=== PATIENT | female | born 1990 | race African-American/Black ===

== ENCOUNTER 2019-04-16 18:32 | Emergency (ER) | payer OTHER ==
[~2019-04-16] VITALS: Ht 165.1 cm; Wt 91.2 kg
--- NOTE | 2019-04-16 18:37 | PHYS DOC ---
Adult General Chief Complaint Chief Complaint: FLU SYMPTOM.." ... I been sick for over 2 weeks now fever, chills, achy, coughing, I think at the flu" HPI HPI Patient is a 28 year old female who presents with above hx and complaints fever, chills, malaise, myalgia, arthralgia, pharyngitis, chest congestion, and fatigue. Patient denies any travel or specific ill contacts. Did not get a flu vaccination this season. No recent travel. No history immunosuppression. Does not have a primary care she follows or care.. Children have had colds earlier last month. Review of Systems Review of Systems Constitutional: Complaints of fever or chills [] Eyes: Denies change in visual acuity, redness, or eye pain [] HENT: Complaints of nasal congestion or sore throat [] Respiratory: Complaints of cough and wheezing Cardiovascular: No additional information not addressed in HPI [] GI: Denies abdominal pain, nausea, vomiting, bloody stools or diarrhea [] : Denies dysuria or hematuria [] Musculoskeletal: Complaints of generalized body pain Integument: Denies rash or skin lesions [] Neurologic: Denies headache, focal weakness or sensory changes [] Endocrine: Denies polyuria or polydipsia [] All other systems were reviewed and found to be within normal limits, except as documented in this note. Family History Family History Noncontributory Current Medications Current Medications See nursing for home meds Allergies Allergies No known drug allergies Physical Exam Physical Exam Constitutional: Moderate acute distress, non-toxic appearance. [] HENT: Normocephalic, atraumatic, bilateral external ears normal, oropharynx moist, injected pharynx, no oral exudates, nose swollen turbinates and clear rhinorrhea Eyes: PERRLA, EOMI, conjunctiva normal, no discharge. [] Neck: Normal range of motion, no tenderness, supple, no stridor. [] Old surgery scar right side of neck Cardiovascular: Tachycardia Heart rate regular rhythm, no murmur [] Lungs & Thorax: Bilateral breath sounds with apex with scattered wheezes auscultation [] Abdomen: Bowel sounds normal, soft, no tenderness, no masses, no pulsatile masses. [] Skin: Warm, dry, no erythema, no rash. [] Back: No tenderness, no CVA tenderness. [] Extremities: No tenderness, no cyanosis, no clubbing, ROM intact, no edema. [] Neurologic: Alert and oriented X 3, normal motor function, normal sensory function, no focal deficits noted. [] Psychologic: Affect anxious, judgement normal, mood normal. [] EKG EKG [] Radiology/Procedures Radiology/Procedures [][address] [id number] IMAGING REPORT Signed PATIENT: CARSON FARRIS ACCOUNT: [id number] : 1990 LOCATION: ER AGE: 28 SEX: F EXAM STATUS: DEP ER ORD. PHYSICIAN: TULIO FORD MD REASON: Congestion, cough, fever x 2 weeks PROCEDURE: CHEST PA & LATERAL EXAM: PA and Lateral Views of the Chest DATE: 04/16/2019 7:32 PM INDICATION: Cough, fever, congestion COMPARISON: No Prior FINDINGS/ IMPRESSION: The heart is not enlarged. Mediastinal and hilar contours are normal. Patchy opacities left lung base, best seen on the lateral view likely developing consolidative process such as pneumonia. No pleural effusion or pneumothorax. Electronically signed by: Colin Yang MD (04/16/2019 8:27 PM) [facility] [place] S[place] BY: COLIN YANG MD DATE: 04/16/192026 CC: TULIO FORD MD; PCP,NO ~ Course & Med Decision Making Course & Med Decision Making Pertinent Labs and Imaging studies reviewed. (See chart for details) Patient push fluids. Gargle with Listerine 4 times a day. Take Tylenol and ibuprofen as needed for discomfort. Benadryl 25-50 mg 4 times daily may be helpful for congestion and cough. Patient uses MDI 2 puffs 4 times a day. Take prednisone 50 mg a day for 5 days. Follow-up primary care. Return if any concerns. Take Azithromax 250 a day . Impression: 1. Fever 2. Lt. Lung base atelectasis/ infiltrate- Suspect Pneumonia. 3. Possible UTI- recheck urine on follow up. ( To many epi in sample) [] Dragon Disclaimer Dragon Disclaimer This electronic medical record was generated, in whole or in part, using a voice recognition dictation system. Departure Departure: Disposition: 01 HOME/RESIDENCE PRIOR TO ADM Condition: STABLE Referrals: PCP,NO (PCP) Scripts Azithromycin (AZITHROMYCIN TABLET) 250 Mg Tablet 250 MG PO DAILY for ANTI-BIOTIC for 5 Days, #5 TAB 0 Refills Prov: TULIO FORD MD 04/16/19 Prednisone (PREDNISONE) 50 Mg Tablet 50 MG PO DAILY for cough, reactive airway for 5 Days, #5 TAB Prov: TULIO FORD MD 04/16/19 TULIO FORD MD Apr 16, 2019 18:37
[2019-04-16] MEDS ORDERED: ALBUTEROL SULFATE 8GM INHALER. INH ONE (19:00)
[2019-04-16] MEDS ORDERED: predniSONE 10 MG TABLET PO ONE (19:00)
[2019-04-16] MEDS ORDERED: ACETAMINOPHEN 500 MG TABLET PO ONE (19:00)
[2019-04-16] MEDS ORDERED: PRED50TA PO (19:35)
[2019-04-16 19:37] LABS: INFLUENZA A PATIENT NEGATIVE (NEGATIVE); INFLUENZA B PATIENT NEGATIVE (NEGATIVE)
[2019-04-16] MEDS ORDERED: AZIT250T6 PO (19:41)
[2019-04-16 19:45] LABS: BARBITURATES NEG (NEG); BENZODIAZEPINES NEG (NEG); CANNABINOIDS NEG (NEG); COCAINE NEG (NEG); METHADONE NEG (NEG); OPIATES NEG (NEG); PHENCYCLIDINE NEG (NEG)
[2019-04-16] MEDS ORDERED: AZITHROMYCIN 250 MG TABLET. PO ONE (19:45)
[2019-04-16 19:52] LABS: BACTERIA,URINE MANY /HPF (0-FEW); BILIRUBIN,URINE NEG (NEG); CLARITY,URINE CLOUDY; COLOR,URINE AMBER; GLUCOSE,URINE NEG (NEG); NITRITE,URINE NEG (NEG); RBC,URINE 20-40 /HPF (0-2)
[2019-04-16 19:53] LABS: AMORPHOUS SEDIMENT,UR PRESENT /HPF; SQUAMOUS EPITHELIAL CELL,UR MANY /LPF
[2019-04-16 19:54] LABS: AMPHETAMINE/METHAMPHETAMINE NEG (NEG)
[2019-04-16 20:05] VITALS: BP 131/81
--- NOTE | 2019-04-16 20:30 | RAD ---
EXAM: PA and Lateral Views of the Chest DATE: 04/16/2019 7:32 PM INDICATION: Cough, fever, congestion COMPARISON: No Prior FINDINGS/ IMPRESSION: The heart is not enlarged. Mediastinal and hilar contours are normal. Patchy opacities left lung base, best seen on the lateral view likely developing consolidative process such as pneumonia. No pleural effusion or pneumothorax. Electronically signed by: Colin Yang MD (04/16/2019 8:27 PM) [facility] – [place]
== END 2019-04-16 20:08 | disposition home or self-care (01) ==
LOC: ER 18:32
DX: R50.9 Fever, unspecified (principal); J98.11 Atelectasis; R06.2 Wheezing; R05 Cough; R09.89 Other specified symptoms and signs involving the circulatory and respiratory systems; M79.10 Myalgia, unspecified site
CPT/HCPCS: 36415; 71046; 80307; 81001; 81025; 87070; 87086; 87804; 87880; 94640; 99285; J0456; J7512; J7613; 94664

== ENCOUNTER 2019-06-14 01:55 | Emergency (ER) | payer OTHER ==
[~2019-06-14] VITALS: Ht 165.1 cm; Wt 96.1 kg
[~2019-06-14 01:55] MED LIST: AZIT250T6 PO; PRED50TA PO
[2019-06-14 02:02] VITALS: BP 157/100
--- NOTE | 2019-06-14 02:27 | PHYS DOC ---
Past History Past Medical History: No Pertinent History Past Surgical History: Other Additional Past Surgical Histo: NECK SURGERY Alcohol Use: None Drug Use: None Adult General Chief Complaint Chief Complaint: COUGH.. " .. I ve been coughting for last two days... I brought my sonein to [facility].. so I decided to get checked too... " HPI HPI Patient is a 28 year old female who presents with above hx and complaints of a nonproductive cough, malaise, arthralgia, fatigue, nasal congestion ,sore throat and wheezing. Patient did get flu vaccination this season. No recent travel outside the state. No specific ill contacts other than her son just developed a sore throat. Patient has remote history of prolonged hospitalization at [facility] when she was a child . No history immunosuppression.. Follows with Dr. Ryan. Review of Systems Review of Systems Constitutional: Denies fever or chills [] Eyes: Denies change in visual acuity, redness, or eye pain [] HENT: Denies nasal congestion or sore throat [] Respiratory: History of nonproductive cough and wheezing Cardiovascular: No additional information not addressed in HPI [] GI: Denies abdominal pain, nausea, vomiting, bloody stools or diarrhea [] : Denies dysuria or hematuria [] Musculoskeletal: Denies back pain or joint pain [] Integument: Denies rash or skin lesions [] Neurologic: Denies headache, focal weakness or sensory changes [] Endocrine: Denies polyuria or polydipsia [] All other systems were reviewed and found to be within normal limits, except as documented in this note. Family History Family History Son has streptococcal pharyngitis Current Medications Current Medications See nursing for home meds Allergies Allergies Allergies Coded Allergies Type Severity Reaction Last Updated Verified No Known Drug Allergies 04/16/19 No Physical Exam Physical Exam Constitutional: no acute distress, non-toxic appearance. [] HENT: Normocephalic, atraumatic, bilateral external ears normal, oropharynx moist, no oral exudates, mild injection of pharynx nose swollen turbinates and clear rhinorrhea Eyes: PERRLA, EOMI, conjunctiva normal, no discharge. [] Neck: Normal range of motion, no tenderness, supple, no stridor. Large surgical scar on neck and supra clavicle area on right Cardiovascular:Heart rate regular rhythm, no murmur [] Lungs & Thorax: Bilateral breath sounds equal apex with scattered wheezes on auscultation [] Abdomen: Bowel sounds normal, soft, no tenderness, no masses, no pulsatile masses. [] Skin: Warm, dry, no erythema, no rash. [] Back: No tenderness, no CVA tenderness. [] Extremities: No tenderness, no cyanosis, no clubbing, ROM intact, no edema. [] Neurologic: Alert and oriented X 3, normal motor function, normal sensory function, no focal deficits noted. [] Psychologic: Affect anxious, judgement normal, mood normal. [] EKG EKG [] Radiology/Procedures Radiology/Procedures [] Course & Med Decision Making Course & Med Decision Making Pertinent Labs and Imaging studies reviewed. (See chart for details) Take his Zithromax 250 mg daily for 5 days. Take prednisone 50 mg a 5 days. Use MDI 2 puffs 4 times a day. Tylenol and ibuprofen for discomfort. Follow-up primary care. Return if any concerns. Impression: 1. Upper respiratory infection 2. Bronchitis [] Dragon Disclaimer Dragon Disclaimer This electronic medical record was generated, in whole or in part, using a voice recognition dictation system. Departure Departure: Disposition: HOME/RESIDENCE PRIOR TO ADM Condition: STABLE Referrals: TRIP RYAN MD (PCP) Scripts Albuterol Sulfate (VENTOLIN HFA INHALER) 18 Gm Hfa.aer.ad 2 PUFF IH PRN Q4HRS PRN for FOR ASTHMA for 30 Days, INHALER 0 Refills Prov: TULIO FORD MD 06/14/19 Azithromycin (AZITHROMYCIN TABLET) 250 Mg Tablet 250 MG PO DAILY for ANTI-BIOTIC for 5 Days, #5 TAB 0 Refills Prov: TULIO FORD MD 06/14/19 Prednisone (PREDNISONE) 50 Mg Tablet 50 MG PO DAILY for reactive airway for 5 Days, #5 TAB Prov: TULIO FORD MD 06/14/19 Alida Disclaimer This chart was dictated in whole or in part using Voice Recognition software in a busy, high-work load, and often noisy Emergency Department environment. It may contain unintended and wholly unrecognized errors or omissions. TULIO FORD MD Jun 14, 2019 02:27
[2019-06-14] MEDS ORDERED: predniSONE 10 MG TABLET PO ONE (02:30)
[2019-06-14] MEDS ORDERED: IPRATRPIUM/ALBUTEROL 0.5/2.5MG 3 ML NEBU. NEB ONE (02:30)
[2019-06-14 03:24] LABS: BARBITURATES NEG (NEG); BENZODIAZEPINES NEG (NEG); CANNABINOIDS NEG (NEG); COCAINE NEG (NEG); METHADONE NEG (NEG); OPIATES NEG (NEG); PHENCYCLIDINE NEG (NEG)
[2019-06-14 03:27] LABS: AMPHETAMINE/METHAMPHETAMINE NEG (NEG)
[2019-06-14 03:29] LABS: INFLUENZA A PATIENT NEGATIVE (NEGATIVE); INFLUENZA B PATIENT NEGATIVE (NEGATIVE)
[2019-06-14 03:37] LABS: BILIRUBIN,URINE NEG (NEG); CLARITY,URINE HAZY; COLOR,URINE YELLOW; GLUCOSE,URINE NEG (NEG); NITRITE,URINE NEG (NEG); RBC,URINE >40 /HPF (0-2); UROBILINOGEN,URINE 0.2 mg/dL (0.2 mg/dL)
[2019-06-14 03:38] LABS: BACTERIA,URINE 0 /HPF (0-FEW); SQUAMOUS EPITHELIAL CELL,UR MOD /LPF
[2019-06-14] MEDS ORDERED: ALBU2.5V8 IH (04:07)
[2019-06-14] MEDS ORDERED: AZIT250T6 PO (04:07)
[2019-06-14] MEDS ORDERED: PRED50TA PO (04:07)
[2019-06-14] MEDS ORDERED: AZITHROMYCIN 250 MG TABLET. PO ONE (04:15)
== END 2019-06-14 04:32 | disposition home or self-care (01) ==
LOC: ER 01:55
DX: J06.9 Acute upper respiratory infection, unspecified (principal); J40 Bronchitis, not specified as acute or chronic
CPT/HCPCS: 36415; 80307; 81001; 81025; 87070; 87086; 87804; 87880; 94640; 99283; J0456; J7512

== ENCOUNTER → 2019-06-21 | Outpatient (CLI) | payer OTHER ==
[2019-06-14 02:02] VITALS: BP 157/100
[~2019-06-21] MED LIST changes: +ALBU2.5V8 IH
--- NOTE | 2019-06-21 14:59 | RAD ---
5 views lumbar spine 06/21/2019 INDICATION: Low back pain COMPARISON STUDY: None available Findings:: No evidence of acute fracture or alignment abnormality is identified. The body heights and disc spaces are grossly preserved. No evidence of spondylolysis or spondylolisthesis is seen. No acute soft tissue changes are identified. IMPRESSION: No radiographic evidence of acute osseous abnormality Electronically signed by: Lars Lunsford MD (06/21/2019 2:56 PM) [id number]
== END ==
LOC: DXRAD 13:47
PROVIDERS: ATTEND Family Medicine
DX: M54.5 Low back pain (principal)
CPT/HCPCS: 72110

== ENCOUNTER 2019-10-07 19:20 | Emergency (ER) | payer OTHER ==
[~2019-10-07] VITALS: Ht 165.1 cm; Wt 90.8 kg
[2019-10-07 19:20] VITALS: BP 130/88
--- NOTE | 2019-10-07 19:35 | PHYS DOC ---
Past History Past Medical History: No Pertinent History Past Surgical History: Other Additional Past Surgical Histo: NECK SURGERY Smoking: Non-smoker Alcohol Use: None Drug Use: None General Adult EDM: Chief Complaint: congestion HPI: HPI: Patient is a 28 year old female who presents for evaluation of congestion, sneezing and sinus pressure. Onset of symptoms of the past several days. Furthermore she is had some right chest wall pressure as well. She has been taking [id number] allergy medication without improvement of symptoms. There is no reported fevers and chills. Patient has a mild nonproductive cough. Patient is not exposed any known COVID patients. Drainage is clear Review of Systems: Review of Systems: Constitutional: Denies fever or chills Eyes: Denies change in visual acuity HENT: has nasal congestion and sore throat Respiratory: has cough and shortness of breath Cardiovascular: Denies chest pain or edema GI: Denies abdominal pain, nausea, vomiting, bloody stools or diarrhea : Denies dysuria Musculoskeletal: Denies back pain or joint pain Integument: Denies rash Neurologic: Denies headache, focal weakness or sensory changes Endocrine: Denies polyuria or polydipsia Lymphatic: Denies swollen glands Psychiatric: Denies depression or anxiety Heart Score: Risk Factors: Risk Factors: DM, Current or recent (<one month) smoker, HTN, HLP, family history of CAD, obesity. Risk Scores: Score 0 - 3: 2.5% MACE over next 6 weeks - Discharge Home Score 4 - 6: 20.3% MACE over next 6 weeks - Admit for Clinical Observation Score 7 - 10: 72.7% MACE over next 6 weeks - Early Invasive Strategies Allergies: Allergies: Allergies Coded Allergies Type Severity Reaction Last Updated Verified No Known Drug Allergies 04/16/19 No Physical Exam: PE: Constitutional: Well developed, well nourished, mild acute distress, non-toxic appearance. [] HENT: Normocephalic, atraumatic, bilateral external ears normal, oropharynx moist, no oral exudates, nose normal. [] Eyes: PERRL, EOMI, conjunctiva normal, no discharge. [] Neck: Normal range of motion, no tenderness, supple, no stridor. [] Cardiovascular:Heart rate regular rhythm, no murmur [] Lungs & Thorax: Bilateral breath sounds present, some mild rhonchi present [] Abdomen: Bowel sounds normal, soft, no tenderness, no masses. [] Skin: Warm, dry, no erythema, no rash. [] Back: No tenderness. [] Extremities: No tenderness, no cyanosis, no clubbing, ROM intact, no edema. [] Neurologic: Alert and oriented X 3, normal motor function, normal sensory function, no focal deficits noted. [] Psychologic: Affect normal, judgement normal, mood normal. [] EKG: EKG: [] Radiology/Procedures: Radiology/Procedures: [address] [id number] IMAGING REPORT Signed PATIENT: CARSON FARRIS ACCOUNT: [id number] : 1990 LOCATION: ER AGE: 28 SEX: F EXAM STATUS: REG ER ORD. PHYSICIAN: ASHA SCHULTZ DO REASON: cough, congestion PROCEDURE: CHEST PA & LATERAL Exam performed: 2 views of the chest. Indication: Reason: cough, congestion / Spl. Instructions: / History: Date of Service: 10/07/2019 7:31 PM . Comparison : Two-view chest from 04/16/2019 Findings: PA and lateral radiographs of the chest reveal a normal cardiomediastinal contour. The lungs are clear. No pleural fluid is seen. The visualized osseous structures are unremarkable. Impression: No acute cardiopulmonary process seen. Electronically signed by: Edith Pacheco MD (10/07/2019 7:46 PM) [facility] DICTATED AND SIGNED BY: EDITH PACHECO MD DATE: 10/07/191945 CC: TRIP RYAN MD; ASHA SCHULTZ DO ~ [] Course & Med Decision Making: Course & Med Decision Making Pertinent Labs and Imaging studies reviewed. (See chart for details) [] Dragon Disclaimer: Dragon Disclaimer: This electronic medical record was generated, in whole or in part, using a voice recognition dictation system. 195 stable, will treat symptomatically. Patient does not have pneumonia. Prescription for Medrol Dosepak and Zyrtec given. Patient has stable vital signs. No direct suspicion of COVID at this time Departure Departure: Impression: Primary Impression: Acute bronchitis Qualified Codes: J20.9 - Acute bronchitis, unspecified Disposition: HOME/RESIDENCE PRIOR TO ADM Condition: STABLE Referrals: TRIP RYAN MD (PCP) Patient Instructions: Acute Bronchitis, Iblr-oh-Oazz Additional Instructions: Drink plenty fluids, rest, take medication as directed, use [id number] cough suppressant as directed when needed Scripts Benzonatate (TESSALON PERLE) 100 Mg Capsule 1 CAP PO TID for cough, #21 CAP Prov: ASHA SCHULTZ DO 10/07/19 Cetirizine Hcl (ZYRTEC) 10 Mg Tablet 1 TAB PO DAILY for congestion, #30 TAB 2 Refills Prov: ASHA SCHULTZ DO 10/07/19 Methylprednisolone (MEDROL) 4 Mg Tab.ds.pk 4 MG PO 1X for reactive airway, #1 PKG Prov: ASHA SCHULTZ DO 10/07/19 Justification of Admission: Justification of Admission: Justification of Admission Dx: N/A ASHA SCHULTZ DO Oct 07, 2019 19:35
--- NOTE | 2019-10-07 19:49 | RAD ---
Exam performed: 2 views of the chest. Indication: Reason: cough, congestion / Spl. Instructions: / History: Date of Service: 10/07/2019 7:31 PM . Comparison : Two-view chest from 04/16/2019 Findings: PA and lateral radiographs of the chest reveal a normal cardiomediastinal contour. The lungs are clear. No pleural fluid is seen. The visualized osseous structures are unremarkable. Impression: No acute cardiopulmonary process seen. Electronically signed by: Edith Pacheco MD (10/07/2019 7:46 PM) [facility]
[2019-10-07] MEDS ORDERED: CETI10TA24 PO (19:55)
[2019-10-07] MEDS ORDERED: METH4TAB2 PO (19:55)
[2019-10-07] MEDS ORDERED: BENZ100C PO (19:55)
== END 2019-10-07 20:00 | disposition home or self-care (01) ==
LOC: ER 19:20
DX: J20.9 Acute bronchitis, unspecified (principal); R07.89 Other chest pain; R05 Cough; R09.81 Nasal congestion; Z98.890 Other specified postprocedural states
CPT/HCPCS: 71046; 99283

== ENCOUNTER 2019-10-24 16:30 | Emergency (ER) | payer OTHER ==
[~2019-10-24] VITALS: Ht 165.1 cm; Wt 90.8 kg
[~2019-10-24 16:30] MED LIST changes: +BENZ100C PO; +CETI10TA24 PO; +METH4TAB2 PO
[2019-10-24 16:37] VITALS: BP 136/87
[2019-10-24] MEDS ORDERED: AMOX1TAB61 PO (17:12)
[2019-10-24] MEDS ORDERED: HYDR-3165 PO (17:12)
--- NOTE | 2019-10-24 17:12 | PHYS DOC ---
Past History Past Medical History: No Pertinent History Past Surgical History: Other Additional Past Surgical Histo: NECK SURGERY, hernia repair Smoking: Non-smoker Alcohol Use: None Drug Use: None General Adult EDM: Chief Complaint: DENTAL PROBLEM HPI: HPI: 28-year-old female presents with left upper side dental pain. This is been brewing for about a week. It is gotten worse last 2 days. She has try to get into her dentist, but there is no appointment for a month. The pain is bad enough today that she decided come the emergency room. She denies fever or chills. She has no other complaints at this time. Review of Systems: Review of Systems: Constitutional: Denies fever or chills Eyes: Denies change in visual acuity HENT: Dental pain Respiratory: Denies cough or shortness of breath Cardiovascular: Denies chest pain or edema GI: Denies abdominal pain, nausea, vomiting, bloody stools or diarrhea : Denies dysuria Musculoskeletal: Denies back pain or joint pain Integument: Denies rash Neurologic: Denies headache, focal weakness or sensory changes Endocrine: Denies polyuria or polydipsia Lymphatic: Denies swollen glands Psychiatric: Denies depression or anxiety Heart Score: Risk Factors: Risk Factors: DM, Current or recent (<one month) smoker, HTN, HLP, family history of CAD, obesity. Risk Scores: Score 0 - 3: 2.5% MACE over next 6 weeks - Discharge Home Score 4 - 6: 20.3% MACE over next 6 weeks - Admit for Clinical Observation Score 7 - 10: 72.7% MACE over next 6 weeks - Early Invasive Strategies Allergies: Allergies: Allergies Coded Allergies Type Severity Reaction Last Updated Verified No Known Drug Allergies 04/16/19 No Physical Exam: PE: Constitutional: Well developed, well nourished, no acute distress, non-toxic appearance. [] HENT: Normocephalic, atraumatic, bilateral external ears normal, oropharynx moist, no oral exudates, nose normal. Dental caries in the left upper quadrant with some gum swelling. [] Eyes: PERRLA, EOMI, conjunctiva normal, no discharge. [] Neck: Normal range of motion, no tenderness, supple, no stridor. [] Cardiovascular: Heart rate regular rhythm, no murmur [] Lungs & Thorax: Bilateral breath sounds clear to auscultation [] Abdomen: Bowel sounds normal, soft, no tenderness, no masses, no pulsatile masses. [] Skin: Warm, dry, no erythema, no rash. [] Back: No tenderness, no CVA tenderness. [] Extremities: No tenderness, no cyanosis, no clubbing, ROM intact, no edema. [] Neurologic: Alert and oriented X 3, normal motor function, normal sensory function, no focal deficits noted. [] Psychologic: Affect normal, judgement normal, mood normal. [] Current Patient Data: Vital Signs: Vital Signs Date Time Temp Pulse Resp B/P (MAP) Pulse Ox O2 Delivery O2 Flow Rate FiO2 10/24/19 16:37 98.2 77 14 136/87 (103) 97 Room Air EKG: EKG: [] Radiology/Procedures: Radiology/Procedures: [] Course & Med Decision Making: Course & Med Decision Making Pertinent Labs and Imaging studies reviewed. (See chart for details) Patient appears to have an infected dental carry. I will treat her with Augmentin for 7 days. I will also give her 10 [place] 5/325 for breakthrough pain. She will follow-up with her dentist and call additional dentist if they cannot get her in. She is stable for discharge at this time. [] Dragon Disclaimer: Dragon Disclaimer: This electronic medical record was generated, in whole or in part, using a voice recognition dictation system. Departure Departure: Impression: Primary Impression: Infected dental caries Disposition: HOME/RESIDENCE PRIOR TO ADM Condition: STABLE Referrals: TRIP RYAN MD (PCP) Patient Instructions: Dental Caries, Dental Pain, Hxik-es-Tcln Scripts Hydrocodone Bit/Acetaminophen (NORCO 5-325 TABLET) 1 Each Tablet 1 TAB PO PRN Q6HRS PRN for PAIN, #10 TAB 0 Refills Prov: SHANTI RUVALCABA DO 10/24/19 Amoxicillin/Potassium Clav (AUGMENTIN 875-125 TABLET) 1 Each Tablet 1 TAB PO BID for dental infection for 7 Days, #14 TAB 0 Refills Prov: SHANTI RUVALCABA DO 10/24/19 Justification of Admission: Justification of Admission: Justification of Admission Dx: N/A SHANTI RUVALCABA DO Oct 24, 2019 17:12
== END 2019-10-24 17:17 | disposition home or self-care (01) ==
LOC: ER 16:30
DX: K02.9 Dental caries, unspecified (principal); K04.7 Periapical abscess without sinus
CPT/HCPCS: 99283

== ENCOUNTER 2020-01-01 17:09 | Emergency (ER) | payer OTHER ==
[~2020-01-01] VITALS: Ht 165.1 cm; Wt 90.8 kg
[~2020-01-01 17:09] MED LIST changes: +AMOX1TAB61 PO; -CETI10TA24 PO; +CETI10TA74 PO; +HYDR-3165 PO
--- NOTE | 2020-01-01 18:10 | PHYS DOC ---
Past History Past Medical History: No Pertinent History Past Surgical History: Other Additional Past Surgical Histo: NECK SURGERY, hernia repair Smoking: Non-smoker Alcohol Use: None Drug Use: None General Adult EDM: Chief Complaint: PAIN ON URINATION HPI: HPI: Lou Alfaro is a 29-year-old female who presents with approximately 2 days of dysuria. She states that 2 days ago she began to have a slight pain when u rinating, and that this morning the pain increased when she urinated. She affirms having a pressure lower abdominal pain that is constant and does not radiate into her groin. She affirms minimal paraspinal back pain bilaterally. Patient states that her partner recently informed her that she tested positive for an unknown sexually transmitted disease. She is concerned for possibility of an STD, and has been experiencing some vaginal discharge that is clear-white. Her last menstrual period was approximately 1 week ago and was normal for her. Review of Systems: Review of Systems: Constitutional: Denies fever or chills Eyes: Denies redness or eye pain HENT: Denies nasal congestion or sore throat Respiratory: Denies cough or shortness of breath Cardiovascular: Denies chest pain or palpitations GI: Denies nausea and vomiting; affirms abdominal pain : Denies hematuria; affirms hematuria Musculoskeletal: Denies joint pain; affirms back pain Integument: Denies rash or skin lesions Neurologic: Denies headache, focal weakness or sensory changes Complete systems were reviewed and found to be within normal limits, except as documented in this note. Allergies: Allergies: Allergies Coded Allergies Type Severity Reaction Last Updated Verified No Known Drug Allergies 04/16/19 No Physical Exam: PE: Constitutional: Well developed, well nourished, no acute distress, non-toxic appearance HENT: Normocephalic, atraumatic Eyes: PERRL, EOMI, conjunctiva normal, no discharge Neck: Normal range of motion, no tenderness, supple Lungs & Thorax: No respiratory distress, equal chest rise and fall Abdomen: Soft, minimal suprapubic tenderness Skin: Warm, dry, no erythema, no rash Back: No tenderness, no CVA tenderness Extremities: No tenderness, ROM intact, no edema Neurologic: Alert and oriented X 3, normal motor function, normal sensory function, no focal deficits noted Psychologic: Affect normal, judgment normal Pelvic: Notable at his moderate amount of white discharge, cervix visualized and appears normal, no cervical motion tenderness, minimal bilateral adnexal tenderness Course & Med Decision Making: Course & Med Decision Making Patient presented with dysuria as presented above. Patient's presentation increases suspicion for possible urinary tract infection. Urinalysis revealed . Pelvic exam was utilized due to patient's exposure to sexual transmitted disease and revealed white discharge present in the vaginal vault as well as bilateral adnexal tenderness on bimanual exam. Cultures will be sent and patient will be empirically treated with azithromycin and ceftriaxone. Dragon Disclaimer: Dragon Disclaimer: This electronic medical record was generated, in whole or in part, using a voice recognition dictation system. Departure Departure: Impression: Primary Impression: Encounter for assessment of STD exposure Additional Impression: Dysuria Disposition: 01 HOME/RESIDENCE PRIOR TO ADM Condition: STABLE Referrals: TRIP RYAN MD (PCP) Patient Instructions: Dysuria, Sexually Transmitted Disease, Khsu-oo-Gxpn VIDYA HENNING DO Jan 01, 2020 18:10
[2020-01-01] MEDS ORDERED: cefTRIAXone IM 250 MG VIAL IM ONE (18:15)
[2020-01-01] MEDS ORDERED: AZITHROMYCIN 250 MG TABLET. PO ONE (18:15)
[2020-01-01 18:24] VITALS: BP 163/87
[2020-01-01 18:30] LABS: BILIRUBIN,URINE NEG (NEG); CLARITY,URINE HAZY; COLOR,URINE YELLOW; GLUCOSE,URINE NEG (NEG)
[2020-01-01 18:31] LABS: BACTERIA,URINE FEW /HPF (0-FEW); NITRITE,URINE NEG (NEG); SQUAMOUS EPITHELIAL CELL,UR FEW /LPF; WBC,URINE OCC /HPF (0-4)
[2020-01-04 01:07] LABS: CHLAMYDIA PROBE Negative (Negative)
== END 2020-01-01 19:05 | disposition home or self-care (01) ==
LOC: ER 17:09
DX: Z20.2 Contact with and (suspected) exposure to infections with a predominantly sexual mode of transmission (principal); R30.0 Dysuria; R31.9 Hematuria, unspecified
CPT/HCPCS: 36415; 81001; 81025; 87491; 87591; 96372; 99284; J0456; J0696; Q0111

== ENCOUNTER 2020-01-10 13:39 | Emergency (ER) | payer OTHER ==
[~2020-01-10] VITALS: Ht 165.1 cm; Wt 83.5 kg
[2020-01-10 14:39] VITALS: BP 163/87
--- NOTE | 2020-01-10 14:54 | PHYS DOC ---
Past History Past Medical History: No Pertinent History Past Surgical History: Other Additional Past Surgical Histo: NECK SURGERY, hernia repair Smoking: Non-smoker Alcohol Use: None Drug Use: None General Adult EDM: Chief Complaint: MULTIPLE COMPLAINTS HPI: HPI: Patient is a 29 year old female who presents with complaints of COVID-19 exposure from a family member that tested positive last Monday. Patient states she does not have any symptoms related to the COVID-19 virus. Patient does however state that she has left upper rear molar dental pain this been going on for several months and causes her off-and-on headaches. Patient states she does not have a headache right now. Patient rates her tooth pain a 8/10 on a 1-10 pain scale. Patient denies fever chills, headaches, sore throat, fatigue, muscle or body aches, loss of taste, loss of smell, diarrhea, nausea, vomiting, congestion, cough, or runny nose. Patient's last normal period was on 21 December 2019, patient states that she is not because she has not been having sex lately. Review of Systems: Review of Systems: Constitutional: Denies fever or chills Eyes: Denies change in visual acuity HENT: Denies nasal congestion or sore throat, complains of dental pain left upper rear molars. Respiratory: Denies cough or shortness of breath Cardiovascular: Denies chest pain or edema GI: Denies abdominal pain, nausea, vomiting, bloody stools or diarrhea : Denies dysuria Musculoskeletal: Denies back pain or joint pain Integument: Denies rash Neurologic: Denies headache, focal weakness or sensory changes Lymphatic: Denies swollen glands Psychiatric: Denies depression or anxiety Heart Score: Risk Factors: Risk Factors: DM, Current or recent (<one month) smoker, HTN, HLP, family history of CAD, obesity. Risk Scores: Score 0 - 3: 2.5% MACE over next 6 weeks - Discharge Home Score 4 - 6: 20.3% MACE over next 6 weeks - Admit for Clinical Observation Score 7 - 10: 72.7% MACE over next 6 weeks - Early Invasive Strategies Family History: Family History: Recent family history of positive COVID-19 virus. Current Medications: Current Meds: Patient states she takes an albuterol inhaler as needed for asthma problems. Allergies: Allergies: Allergies Coded Allergies Type Severity Reaction Last Updated Verified No Known Drug Allergies 04/16/19 No Physical Exam: PE: Constitutional: Well developed, well nourished, no acute distress, non-toxic appearance. HENT: Normocephalic, atraumatic, bilateral external ears normal, oropharynx moist, no oral exudates, nose normal. Patient has poor dentition with dental caries, left upper rear molar tooth intact with evidence of pulpitis. Eyes: PERRLA, EOMI, conjunctiva normal, no discharge. Neck: Normal range of motion, no tenderness, supple, no stridor. Cardiovascular:Heart rate regular rhythm, no murmur Lungs & Thorax: Bilateral breath sounds clear to auscultation Abdomen: Bowel sounds normal, soft, no tenderness, no masses, no pulsatile masses. Skin: Warm, dry, no erythema, no rash. Back: No tenderness, no CVA tenderness. Extremities: No tenderness, no cyanosis, no clubbing, ROM intact, no edema. Neurologic: Alert and oriented X 3, normal motor function, normal sensory function, no focal deficits noted. Psychologic: Affect normal, judgement normal, mood normal. Current Patient Data: Vital Signs: Vital Signs Date Time Temp Pulse Resp B/P (MAP) Pulse Ox O2 Delivery O2 Flow Rate FiO2 01/10/20 14:39 98.7 84 18 163/87 (112) 100 EKG: EKG: [] Radiology/Procedures: Radiology/Procedures: [] Course & Med Decision Making: Course & Med Decision Making Pertinent Labs and Imaging studies reviewed. (See chart for details) 29-year-old female reports to the emergency department with complaints that she was exposed to the COVID-19 virus from a family member who tested positive last Monday. Patient denies any symptoms of the COVID-19 virus. Patient does however complain of a sore upper left molar this been going on for several months. Patient states she has not been able to see a dentist lately. Related to patient exposure to the COVID-19 virus, a Covid test was performed in the ER today. Patient will be sent home on Pen-Vee K and Motrin prescriptions for dental caries, patient is to follow-up with a dentist soon. Patient gave verbal understanding of home care instructions follow-up care instructions return to emergency department concerns. Patient had no further questions or concerns. Patient discharged home without incident. Alida Disclaimer: Alida Disclaimer: This electronic medical record was generated, in whole or in part, using a voice recognition dictation system. Departure Departure: Impression: Primary Impression: Pulpitis Additional Impressions: Dental caries Exposure to COVID-19 virus COVID-19 virus test result unknown Educated about COVID-19 virus infection Disposition: 01 DC HOME SELF CARE/HOMELESS Condition: GOOD Referrals: TRIP RYAN MD (PCP) Patient Instructions: Dental Caries Additional Instructions: You have been tested for or diagnosed with COVID-19. It is an infection caused by a new type of coronavirus. COVID-19 will cause cold-like or mild flu symptoms in most. It can cause more severe symptoms like problems breathing in some. There is no treatment for COVID-19. The body will clear the infection over time. Self-care will help to ease discomfort. Steps to Take: Self-Care Rest as needed. Healthy habits may help you feel better. Steps include: Choose healthy foods including fruits and vegetables. Drink water throughout the day. Get plenty of sleep each night. If you smoke, try to quit. It may ease breathing. Avoid alcohol. Keep Others Healthy The virus can spread to others. Droplets are released every time you sneeze or cough. The droplets can get into the mouth, nose, or eyes of people near you and lead to infection. To lower the chances of spreading COVID-19 to others: Stay at home until your doctor has said it is safe to leave. If you tested positive this will mean staying isolated until both of the following are true: At least 7 days have passed since the start of illness. You are free of fever for at least 72 hours without the use of medicine. During this time: - Avoid public areas, events, or transportation. Do not return to work or school until your doctor has said it is safe to do so. - Call ahead if you need to go to a medical center. Let them know you may have COVID-19. It will help them guide you where to go. They may also ask you to wear a facemask when you come to the office. - If you call for emergency medical services, let them know you may have COVID- 19. While at home: - Try to avoid close contact with others. Stay about 6 feet away. - If possible, spend most of your time in a separate room from others. - Use a face mask if you will be in close contact with others such as sharing a room or vehicle. - Have someone wipe down common surfaces in the home. Use household urban planning professor every day on areas like doorknobs, counters, or sinks. - Cough or sneeze into a tissue. Throw the tissue away right after use. If a tissue is not available, cough or sneeze into your elbow. - Wash your hands often. Wash them after sneezing or coughing. Use soap and water and wash for at least 20 seconds. Alcohol based hand ribbon cleaner can be used if soap and water is not available. - Do not prepare food for others. Avoid sharing personal items like forks, spoons, or toothbrushes. - Avoid close contact with pets while you are sick. There is no evidence of the virus passing to pets. This is a safety step until more is known about this virus. Isolation can be frustrating. Social interaction can help. Keep in touch with friends and family through phone and tech options. You can still interact with others in your home, just keep a safe distance of about 6 feet. Follow-up: Your doctors office will check in with you to see if there are any changes in your health. You may be asked to keep track of symptoms to share with them. They will also let you know when you are clear to be in public again. Problems to Look Out For: Contact your doctor if your recovery is not going as you expect. Get emergency care if you have problems such as: - Trouble breathing - Nonstop chest pain or pressure - Changes in awareness, confusion, or problems waking - Lips or face have bluish color - Worsening of symptoms If you think you have an emergency, call for emergency medical services right away. As taken from [facility] Take prescriptions as directed, follow-up with a dentist soon, you have been given a list of dental referrals, follow-up with your primary care doctor for further problems, return to the emergency department for further concerns. Scripts Penicillin V Potassium (PENICILLIN V POTASSIUM) 500 Mg Tablet 1 TAB PO QID for DENTAL INFECTION for 7 Days, #28 TAB Prov: VIDYA MAYS APRN 01/10/20 Ibuprofen (IBUPROFEN) 600 Mg Tablet 600 MG PO TID for DENTAL PAIN, #20 TAB 0 Refills Prov: VIDYA MASY APRN 01/10/20 VIDYA MAYS APRN Jan 10, 2020 14:54
[2020-01-10] MEDS ORDERED: PENI500T PO (15:47)
[2020-01-10] MEDS ORDERED: IBUP600T16 PO (15:47)
--- NOTE | 2020-01-13 09:18 | NUR ---
IP: notified patient of COVID result.
== END 2020-01-10 16:13 | disposition home or self-care (01) ==
LOC: ER 14:12
DX: K04.01 Reversible pulpitis (principal); K02.9 Dental caries, unspecified; Z20.828 Contact with and (suspected) exposure to other viral communicable diseases
CPT/HCPCS: 99283; C9803; U0003

== ENCOUNTER 2020-02-09 10:22 | Emergency (ER) | payer OTHER ==
[~2020-02-09] VITALS: Ht 165.1 cm; Wt 83.5 kg
[2020-02-09 10:22] VITALS: BP 144/89
[~2020-02-09 10:22] MED LIST changes: +IBUP600T16 PO; +PENI500T PO
[2020-02-09] MEDS ORDERED: IPRATRPIUM/ALBUTEROL 0.5/2.5MG 3 ML NEBU. NEB ONE (10:45)
--- NOTE | 2020-02-09 10:53 | PHYS DOC ---
Past History Past Medical History: No Pertinent History Past Surgical History: Other Additional Past Surgical Histo: NECK SURGERY, hernia repair Smoking: Non-smoker Alcohol Use: None Drug Use: None General Adult EDM: Chief Complaint: MULTIPLE COMPLAINTS HPI: HPI: Patient is a 29-year-old female coming in for left-sided chest pain starting about 6 and half hours prior to arrival. Patient woke up with the pain. Says for the past week has been having bilateral upper back pain which she attributed to lifting at her job. Had not been having chest pain prior. Has had a slight cough and use her inhalers morning with a little bit of improvement. No history, history of blood clot and cardiac disease in grandmother. States she had a subjective fever yesterday morning when she woke up, none today. Review of Systems: Review of Systems: Constitutional: Denies fever or chills Eyes: Denies change in visual acuity HENT: Denies nasal congestion or sore throat Respiratory: Denies cough or shortness of breath Cardiovascular: Left-sided chest pain, no lower extremity edema GI: Denies abdominal pain, nausea, vomiting, bloody stools or diarrhea : Denies dysuria Musculoskeletal: Denies back pain or joint pain Integument: Denies rash Neurologic: Denies headache, focal weakness or sensory changes Endocrine: Denies polyuria or polydipsia Lymphatic: Denies swollen glands Psychiatric: Denies depression or anxiety Current Medications: Current Meds: Current Medications Medications (Trade) Dose Ordered Sig/Jayro Start Time Stop Time Status Last Admin Dose Admin Albuterol/ Ipratropium (Duoneb) 3 ml 1X ONCE 02/09/20 10:45 02/09/20 10:46 UNV Allergies: Allergies: Allergies Coded Allergies Type Severity Reaction Last Updated Verified No Known Drug Allergies 04/16/19 No Physical Exam: PE: Constitutional: Well developed, well nourished, no acute distress, non-toxic appearance. [] HENT: Normocephalic, atraumatic, bilateral external ears normal, oropharynx moist, no oral exudates, nose normal. [] Eyes: PERRLA, EOMI, conjunctiva normal, no discharge. [] Neck: Normal range of motion, no tenderness, supple, no stridor. [] Cardiovascular:Heart rate regular rhythm, no murmur [] pain not reproducible with palpation Lungs & Thorax: Bilateral breath sounds clear to auscultation [] Abdomen: Bowel sounds normal, soft, no tenderness, no masses, no pulsatile masses. [] Skin: Warm, dry, no erythema, no rash. [] Back: Bilateral thoracic, no spine deformity, step-off no point tenderness of the spine., no CVA tenderness. [] Extremities: No tenderness, no cyanosis, no clubbing, ROM intact, no edema. [] Neurologic: Alert and oriented X 3, normal motor function, normal sensory function, no focal deficits noted. [] Psychologic: Affect normal, judgement normal, mood normal. [] Current Patient Data: Vital Signs: Vital Signs Date Time Temp Pulse Resp B/P (MAP) Pulse Ox O2 Delivery O2 Flow Rate FiO2 02/09/20 10:22 98.6 73 16 144/89 (107) 100 Room Air EKG: EKG: Normal sinus rhythm, heart rate 65, no ectopy, normal intervals, T wave version in lead III [] Radiology/Procedures: Radiology/Procedures: Chest radiograph 02/09/2020 10:43 AM INDICATION: Left chest pain COMPARISON: 10/07/2019 TECHNIQUE: Frontal and lateral views of the chest are provided. FINDINGS: The cardiomediastinal silhouette is within normal limits. There are no pleural effusions. There is no pulmonary vascular congestion. There is no pneumothorax. Increased interstitial airspace disease at the left lung base. No significant osseous abnormality is identified. IMPRESSION: Increased interstitial airspace disease at the left lung base may represent developing interstitial pneumonitis. Short-term follow-up radiographs could be of benefit to assess for resolution. [] Heart Score: Risk Factors: Risk Factors: DM, Current or recent (<one month) smoker, HTN, HLP, family history of CAD, obesity. Risk Scores: Score 0 - 3: 2.5% MACE over next 6 weeks - Discharge Home Score 4 - 6: 20.3% MACE over next 6 weeks - Admit for Clinical Observation Score 7 - 10: 72.7% MACE over next 6 weeks - Early Invasive Strategies Course & Med Decision Making: Course & Med Decision Making Pertinent Labs and Imaging studies reviewed. (See chart for details) [] Dragon Disclaimer: Dragon Disclaimer: This electronic medical record was generated, in whole or in part, using a voice recognition dictation system. Departure Departure: Impression: Primary Impression: CAP (community acquired pneumonia) Disposition: 01 DC HOME SELF CARE/HOMELESS Condition: STABLE Referrals: TRIP RYAN MD (PCP) Patient Instructions: Pneumonia, Adult Scripts Azithromycin (AZITHROMYCIN TABLET) 250 Mg Tablet 1 PKG PO UD for pneumonia for 5 Days, #6 TAB 0 Refills 2 the first day followed by 1 for days 2-5 Prov: CARSON LOYA MD 02/09/20 Prednisone (PREDNISONE) 50 Mg Tablet 1 TAB PO DAILY for cough for 5 Days, #5 TAB You received this medication in the emergency room today. You will starting your next dose tomorrow. Prov: CARSON LOYA MD 02/09/20 CARSON LOYA MD Feb 09, 2020 10:53
--- NOTE | 2020-02-09 11:15 | RAD ---
Chest radiograph 02/09/2020 10:43 AM INDICATION: Left chest pain COMPARISON: 10/07/2019 TECHNIQUE: Frontal and lateral views of the chest are provided. FINDINGS: The cardiomediastinal silhouette is within normal limits. There are no pleural effusions. There is no pulmonary vascular congestion. There is no pneumothorax. Increased interstitial airspace disease at the left lung base. No significant osseous abnormality is identified. IMPRESSION: Increased interstitial airspace disease at the left lung base may represent developing interstitial pneumonitis. Short-term follow-up radiographs could be of benefit to assess for resolution. Electronically signed by: Marleni Minor MD (02/09/2020 11:12 AM) ABDON
[2020-02-09 11:21] LABS: BASO % 0 % (0-3); EOS # 0.1 x10^3/uL (0.0-0.7); EOS % 1 % (0-3); HEMATOCRIT 30.5 % (36.0-47.0); HEMOGLOBIN 9.7 g/dL (12.0-15.5); LYMPH # 1.6 x10^3/uL (1.0-4.8); LYMPH % 41 % (24-48); MEAN CORPUSCULAR HEMOGLOBIN 31 pg (25-35); MEAN CORPUSCULAR HGB CONC 32 g/dL (31-37); MEAN CORPUSCULAR VOLUME 97 fL (79-100); MONO # 0.5 x10^3/uL (0.0-1.1); MONO % 13 % (0-9); NEUT # 1.7 x10^3uL (1.8-7.7); NEUT % 44 % (31-73); PLATELET COUNT 329 x10^3/uL (140-400); RED BLOOD COUNT 3.13 x10^6/uL (3.50-5.40)
[2020-02-09 11:27] LABS: CALCIUM 9.4 mg/dL (8.5-10.1); CREATININE 0.6 mg/dL (0.6-1.0); GFR 141.1; POTASSIUM 3.5 mmol/L (3.5-5.1)
[2020-02-09 11:33] LABS: ALBUMIN 3.4 g/dL (3.4-5.0); ALBUMIN/GLOBULIN RATIO 0.9 (1.0-1.7); TOTAL BILIRUBIN 1.1 mg/dL (0.2-1.0)
[2020-02-09] MEDS ORDERED: PRED50TA PO (12:47)
[2020-02-09] MEDS ORDERED: AZIT250T6 PO (12:47)
--- NOTE | 2020-02-09 14:04 | EKG ---
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
== END 2020-02-09 12:54 | disposition home or self-care (01) ==
LOC: ER 10:22
DX: J18.9 Pneumonia, unspecified organism (principal); R07.89 Other chest pain; R50.9 Fever, unspecified; M54.6 Pain in thoracic spine; R05 Cough; Z98.890 Other specified postprocedural states
CPT/HCPCS: 36415; 71046; 80053; 84484; 84702; 85025; 93005; 94640; 99285

== ENCOUNTER 2020-04-14 13:16 | Emergency (ER) | payer OTHER ==
[~2020-04-14] VITALS: Ht 165.1 cm; Wt 86.0 kg
[2020-04-14 13:30] VITALS: BP 143/91
[2020-04-14] MEDS ORDERED: AMOX1TAB11 PO (14:09)
[2020-04-14] MEDS ORDERED: IBUP-1673 PO (14:09)
--- NOTE | 2020-04-14 14:10 | PHYS DOC ---
Past History Past Medical History: No Pertinent History Past Surgical History: Other Additional Past Surgical Histo: NECK SURGERY, hernia repair Smoking: Non-smoker Alcohol Use: None Drug Use: None General Adult EDM: Chief Complaint: MULTIPLE COMPLAINTS HPI: HPI: Patient is a 29-year-old female presents with right lower second molar pain for 1 week and lower abdominal pain that radiates to left flank. Patient states that she woke up at 3 AM with throbbing tooth pain. "I tried to go to the [facility] to have my tooth looked up but they said I could not get in". reports when she was at work today that she chipped the back tooth. Patient states that she has been taking ibuprofen with little relief and took a hydrocodone, 10/325 at 3 AM. Patient denies sensitivity to cold or hot. Patient denies fever.Denies having an established dentist. Denies urinary frequency or dysuria. Review of Systems: Review of Systems: Constitutional: Denies fever or chills Eyes: Denies change in visual acuity HENT: Denies nasal congestion or sore throat Respiratory: Denies cough or shortness of breath Cardiovascular: Denies chest pain or edema GI: Ports lower pelvic pain that radiates to her left flank, denies nausea/vomiting/diarrhea : Denies dysuria or frequency Musculoskeletal: Denies back pain or joint pain Integument: Denies rash Neurologic: Denies headache, focal weakness or sensory changes Endocrine: Denies polyuria or polydipsia Lymphatic: Denies swollen glands Psychiatric: Denies depression or anxiety Allergies: Allergies: Allergies Coded Allergies Type Severity Reaction Last Updated Verified No Known Drug Allergies 04/16/19 No Physical Exam: PE: Constitutional: Well developed, well nourished, no acute distress, non-toxic appearance. [] HENT: Normocephalic, atraumatic, bilateral external ears normal, oropharynx moist, no oral exudates, nose normal. [] Eyes: PERRLA, EOMI, conjunctiva normal, no discharge. [] Neck: Normal range of motion, no tenderness, supple, no stridor. [] Cardiovascular:Heart rate regular rhythm, no murmur [] Lungs & Thorax: Bilateral breath sounds clear to auscultation [] Abdomen: Bowel sounds normal, soft, no tenderness, no masses, no pulsatile masses. [] Skin: Warm, dry, no erythema, no rash. [] Back: No tenderness, no CVA tenderness. [] Extremities: No tenderness, no cyanosis, no clubbing, ROM intact, no edema. [] Neurologic: Alert and oriented X 3, normal motor function, normal sensory functi on, no focal deficits noted. [] Psychologic: Affect normal, judgement normal, mood normal. [] Current Patient Data: Labs: Laboratory Tests Test 04/14/20 13:47 POC Urine HCG, Qualitative hcg negative (Negative) EKG: EKG: [] Radiology/Procedures: Radiology/Procedures: []NDICATION: Reason: ABDOMINAL PAIN, HERNIA SURG 4 YEARS AGO / Spl. Instructions: / History: . COMPARISON: June 09, 2018 TECHNIQUE: Axial CT images obtained through the abdomen and pelvis without contrast. One or more of the following individualized dose reduction techniques were utilized for this examination: 1. Automated exposure control; 2. Adjustment of the mA and/or kV according to patient size; 3. Use of iterative reconstruction technique. FINDINGS: Linear opacities at the lung bases. There is also some groundglass opacities at left greater than right lung base. Abdominal aorta is not aneurysmal. No intrahepatic bile duct dilation. Limited assessment of the pancreas without contrast. Spleen is unremarkable. Urinary bladder is partially distended. Uterus is visualized. No right-sided hydronephrosis. No periappendiceal inflammatory changes. No dilated loops of bowel to suggest obstruction. Postoperative changes to the anterior abdominal wall. IMPRESSION: * No evidence of bowel obstruction or appendicitis. * No hydronephrosis. * Uterus is enlarged. Causes such as fibroids are within the differential but incompletely evaluated on this exam. * There are some patchy opacities at the lung bases which could be from atelectasis or infiltrate. Electronically signed by: Vitor Monet MD (04/14/2020 2:24 PM) [id number] Heart Score: Risk Factors: Risk Factors: DM, Current or recent (<one month) smoker, HTN, HLP, family history of CAD, obesity. Risk Scores: Score 0 - 3: 2.5% MACE over next 6 weeks - Discharge Home Score 4 - 6: 20.3% MACE over next 6 weeks - Admit for Clinical Observation Score 7 - 10: 72.7% MACE over next 6 weeks - Early Invasive Strategies Course & Med Decision Making: Course & Med Decision Making Pertinent Labs and Imaging studies reviewed. (See chart for details) []Patient is a 29-year-old female presents with right lower second molar pain for 1 week and lower abdominal pain that radiates to left flank. Patient states that she woke up at 3 AM with throbbing tooth pain. "I tried to go to the [facility] to have my tooth looked up but they said I could not get in". reports when she was at work today that she chipped the back tooth. Patient states that she has been taking ibuprofen with little relief and took a hydrocodone, 10/325 at 3 AM. Patient denies sensitivity to cold or hot. Patient denies fever.Denies having an established dentist. Denies urinary frequency or dysuria. CT abdomen and pelvis ordered rule out kidney stone.CT shows No evidence of bowel obstruction or appendicitis.No hydronephrosis,Uterus is enlarged. Causes such as fibroids are within the differential but incompletely evaluated on this exam.There are some patchy opacities at the lung bases which could be from atelectasis or infiltrate. Patient states she got an appointment for dentist at 3pm and needs to leave. Patient given prescription for Amox clauv and ibuprofen for pain. 1.Dental caries 2. Dental abscess Dragon Disclaimer: Dragon Disclaimer: This electronic medical record was generated, in whole or in part, using a voice recognition dictation system. Departure Departure: Impression: Primary Impression: Pain, dental Disposition: 01 DC HOME SELF CARE/HOMELESS Condition: GOOD Referrals: TRIP RYAN MD (PCP) Patient Instructions: Dental Caries Additional Instructions: EMERGENCY DEPARTMENT GENERAL DISCHARGE INSTRUCTIONS Thank you for coming to [facility] (ED) today and trusting us with you care. We trust that you had a positivie experience in our Emergency Department. If you wish to speak to the department management, you may call the director at [phone]. YOUR FOLLOW UP INSTRUCTIONS ARE FOLLOWS: 1. Do you have a private Doctor? If you do not have a private doctor, please ask for a resource list of physicians or clinics that may be able to assist you with follow up care. 2. The Emergency Physician has interpreted your x-rays. The X-Ray specialist will also review them. If there is a change in the findings, you will be notified in 48 hours when at all possible. 3. A lab test or culture has been done, your results will be reviewed and you will be notified if you need a change in treatment. ADDITIONAL INSTRUCTIONS AND INFORMATION: 1. Your care today has been supervised by a physician who is specially trained in emergency care. Many problems require more than one evaluation for a complete diagnosis and treatment. We recommend that you schedule your follow up appointment as recommended to ensure complete treatment of you illness or injury. If you are unable to obtain follow up care and continue to have a problem, or if your condition worsens, we recommend that you return to the ED. 2. We are not able to safely determine your condition over the phone nor are we able to give sound medical advice over the phone. For these safety reasons, if you call for medical advice we will ask you to come to the ED for further evaluation. 3. If you have any questions regarding these discharge instructions please call the ED at [phone]. SAFETY INFORMATION: In the interest of safety, wellness, and injury prevention; we encourage you to wear your sealbelt, if you smoke; quite smoking, and we encourage family to use a protective helmet for bicycling and other sporting events that present an increased risk for head injury. IF YOUR SYMPTOMS WORSEN OR NEW SYMPTOMS DEVELOP, OR YOU HAVE CONCERNS ABOUT YOUR CONDITION; OR IF YOUR CONDITION WORSENS WHILE YOU ARE WAITING FOR YOUR FOLLOW UP APPOI NTMENT; EITHER CONTACT YOUR PRIMARY CARE DOCTOR, THE PHYSICIAN WHOSE NAME AND NUMBER YOU WERE GIVEN, OR RETURN TO THE ED IMMEDIATELY. Scripts Ibuprofen (IBUPROFEN) 200 Mg Tablet 600 MG PO QIDPRN PRN for PAIN, #15 TAB Prov: TANNER ZAMORA APRN 04/14/20 Amoxicillin/Potassium Clav (AMOX TR-K CLV 875-125 MG TAB) 1 Each Tablet 1 EACH PO Q12HR for dental infection for 7 Days, #14 TAB Prov: TANNER ZAMORA ICE SKATING COACH 04/14/20 TANNER ZAMORA APRN Apr 14, 2020 14:10
[2020-04-14] MEDS: HYDROcodone/APAP 5/325MG 1 TAB TABLET PO ONE (14:14)
--- NOTE | 2020-04-14 14:27 | RAD ---
INDICATION: Reason: ABDOMINAL PAIN, HERNIA SURG 4 YEARS AGO / Spl. Instructions: / History: . COMPARISON: June 09, 2018 TECHNIQUE: Axial CT images obtained through the abdomen and pelvis without contrast. One or more of the following individualized dose reduction techniques were utilized for this examinat ion: 1. Automated exposure control; 2. Adjustment of the mA and/or kV according to patient size; 3 . Use of iterative reconstruction technique. FINDINGS: Linear opacities at the lung bases. There is also some groundglass opacities at left greater than rig ht lung base. Abdominal aorta is not aneurysmal. No intrahepatic bile duct dilation. Limited assessment of the pancreas without contrast. Spleen is unremarkable. Urinary bladder is partially distended. Uterus is visualized. No right-sided hydronephrosis. No periappendiceal inflammatory changes. No dilated loops of bowel to suggest obstruction. Postoperative changes to the anterior abdominal wall. IMPRESSION: * No evidence of bowel obstruction or appendicitis. * No hydronephrosis. * Uterus is enlarged. Causes such as fibroids are within the differential but incompletely evaluated on this exam. * There are some patchy opacities at the lung bases which could be from atelectasis or infiltrate. Electronically signed by: Vitor Monet MD (04/14/2020 2:24 PM) [id number]
== END 2020-04-14 14:39 | disposition home or self-care (01) ==
LOC: ER 13:16
DX: K04.7 Periapical abscess without sinus (principal); K02.9 Dental caries, unspecified; R10.2 Pelvic and perineal pain
CPT/HCPCS: 74176; 81025; 99284-25